=== PATIENT | female | born 1955 | race Caucasian/White ===

== ENCOUNTER 2017-12-02 17:07 | Emergency (ER) | payer BC ==
[~2017-12-02] VITALS: Ht 157.5 cm; Wt 78.0 kg
[2017-12-02 17:10] VITALS: Ht 157.5 cm; Wt 78.0 kg
[2017-12-02 19:29] VITALS: BP 124/73
== END 2017-12-02 19:29 | disposition home or self-care (01) ==
LOC: ED 17:07
DX: F41.0 Panic disorder [episodic paroxysmal anxiety] (principal); M79.7 Fibromyalgia; R51 Headache; R53.1 Weakness; R11.10 Vomiting, unspecified; Z90.710 Acquired absence of both cervix and uterus
CPT/HCPCS: J1885; Q0162